=== PATIENT | female | born 1985 | race Caucasian/White ===

== ENCOUNTER 2021-07-30 11:34 | Emergency (ER) | payer BC, OTHER ==
[2021-07-30 12:01] LABS: Bilirubin Neg (Negative); Blood, Urine 250 (Negative); Clarity Slightly Cloudy (Clear); Glucose, Urine (Dipstick) Normal (Negative); Ketone, Urine Negative (Negative); Leukocyte Negative (Negative); Nitrite Negative (Negative); Protein, Urine (Dipstick) 15 mg/dl (Neg-Trace); Urobilinogen Normal mg/dL (Less than 2)
[2021-07-30 12:22] LABS: Bacteria/HPF 1+ HPF (None Seen); RBC/HPF 21-50 HPF (0-3); Squamous Epithelial 0-3 HPF (0-3); WBC/HPF 0-3 HPF (0-3)
[2021-07-30 12:25] LABS: #Monocytes 0.4 10x3/uL (0.0-1.1); #Neutrophils 4.6 10x3/uL (1.5-8.4); %Basophils 0.3 % (0.0-2.0); %Eosinophils 0.3 % (0.0-6.0); %Lymphocytes 27.6 % (18.0-47.0); %Monocytes 5.2 % (0.0-10.0); %Neutrophils 66.5 % (40.0-75.0); Hemoglobin 12.3 g/dL (12.0-15.5); Mean Corpuscular HGB CONC 34.4 g/dL (32.0-36.0); Mean Corpuscular Hemoglobin 29.4 pg (27.0-33.0); Mean Corpuscular Volume 85.4 fl (81.6-98.3); Mean Platelet Volume 9.4 fl (7.4-10.4); Platelet Count 211 10x3/uL (150-450); Red Blood Cell (RBC) Count 4.19 10x6/uL (3.90-5.03)
[2021-07-30 12:53] LABS: ALT (SGPT) 23 U/L (8-55); AST (SGOT) 30 U/L (5-34); Albumin 3.7 g/dL (3.5-5.0); Alkaline Phosphatase 50 U/L (40-110); Anion Gap 14 mmol/L (10-20); BUN (Urea Nitrogen) 13 mg/dL (7.0-18.7); Bilirubin, Total 0.3 mg/dL (0.2-1.2); Calc. Creatinine Clearance 0 mL/min (70-130); Calcium 9.1 mg/dL (7.8-10.44); Carbon Dioxide 20 mmol/L (22-29); Chloride 107 mmol/L (98-107); Glucose 69 mg/dL (70-105); Potassium 3.6 mmol/L (3.5-5.1); Protein, Total 6.7 g/dL (6.0-8.3); Sodium 137 mmol/L (136-145)
== END 2021-07-30 14:22 | disposition home or self-care (01) ==
LOC: CSHERS 11:34
DX: O20.0 Threatened abortion (principal); Z3A.15 15 weeks gestation of pregnancy
CPT/HCPCS: 76815; 80053; 81003; 81015; 84702; 85025; 86900; 86901

== ENCOUNTER 2022-01-13 07:30 | Inpatient (IN) | payer BC, OTHER ==
[2022-01-16 06:24] VITALS: BMI 33.4
[2022-01-16] MEDS ORDERED: Lactated Ringer's 1,000 ML IV SCH (06:26)
[2022-01-16] MEDS ORDERED: CEFAZOLIN 2 GM in Sodium Chloride 0.9% 100 ML IVPB SCH (06:26)
[2022-01-16] MEDS ORDERED: Bicitra 30 ML UDCUP PO PRN (06:26)
[2022-01-16] MEDS ORDERED: hydrALAZINE 20 MG/ML VIAL SLOW IVP PRN ×2 (06:26→16:54)
[2022-01-16] MEDS ORDERED: Famotidine/PF 20 mg/2ml Vial SLOW IVP PRN (06:26)
[2022-01-16] MEDS ORDERED: Promethazine HCl 25 MG/ML VIAL IM PRN ×3 (06:26→16:54)
[2022-01-16] MEDS ORDERED: Ondansetron PF 4 MG/2 ML Vial IVP PRN ×3 (06:26→16:54)
[2022-01-16] MEDS ORDERED: Oxytocin 10 UNITS/ML VIAL ONE ×4 (07:02→09:11)
[2022-01-16] MEDS ORDERED: ePHEDrine Sulfate 50 MG/10 ML VIAL ONE (07:02)
[2022-01-16] MEDS ORDERED: Morphine PF 10 MG/10 ML VIAL ONE (07:02)
[2022-01-16] MEDS ORDERED: PHENYLEPHRINE-NS 100 MCG/ML 10 ML SYRINGE ONE (07:02)
[2022-01-16] MEDS ORDERED: Fentanyl 100 MCG/2 ML VIAL ONE (07:02)
[2022-01-16] MEDS ORDERED: Phenylephrine 40 MG/NS 250 ML 250 ML ONE (07:03)
[2022-01-16] MEDS ORDERED: Ondansetron PF 4 MG/2 ML Vial ONE (07:58)
[2022-01-16] MEDS ORDERED: Ketorolac Tromethamine 30 MG/ML VIAL ONE (08:04)
[2022-01-16] MEDS ORDERED: Misoprostol 200 MCG TAB ONE (08:13)
[2022-01-16] MEDS ORDERED: Methylergonovine 0.2 MG/ML VIAL ONE (08:13)
[2022-01-16 09:35] LABS: Hemoglobin 9.8 g/dL (12.0-15.5); Mean Corpuscular HGB CONC 33.8 g/dL (32.0-36.0); Mean Corpuscular Hemoglobin 30.7 pg (27.0-33.0); Mean Corpuscular Volume 90.9 fl (81.6-98.3); Platelet Count 204 10x3/uL (150-450); RBC Distribution Width 14.4 % (11.5-14.5); Red Blood Cell (RBC) Count 3.19 10x6/uL (3.90-5.03); White Blood Cell (WBC) Count 15.6 10x3/uL (3.5-10.5)
[2022-01-16] MEDS ORDERED: Ketorolac Tromethamine 30 MG/ML VIAL IVP PRN (09:40)
[2022-01-16] MEDS ORDERED: diphenhydrAMINE 50 MG/ML VIAL IVP PRN (09:40)
[2022-01-16] MEDS ORDERED: Naloxone HCl 0.4 mg/ml Vial IVP PRN ×2 (09:40)
[2022-01-16] MEDS ORDERED: Fentanyl 100 MCG/2 ML VIAL SLOW IVP PRN (09:40)
[2022-01-16] MEDS ORDERED: Ondansetron HCl/PF 4 MG/2 ML Vial IVP PRN (09:40)
[2022-01-16] MEDS ORDERED: HYDROmorphone 2 MG/ML VIAL SLOW IVP PRN (09:40)
[2022-01-16] MEDS ORDERED: Moisturizing Cream (Eucerin) 113 GM JAR TOP PRN (09:40)
[2022-01-16] MEDS ORDERED: Promethazine HCl 25 MG SUPP PR PRN (09:40)
[2022-01-16] MEDS ORDERED: Naloxone HCl 0.4 mg/ml Vial IV PRN (09:40)
[2022-01-16] MEDS ORDERED: Meperidine HCl/PF 25 MG/ML VIAL SLOW IVP PRN (09:40)
[2022-01-16] MEDS: Tranexamic Acid 1,000 MG/10 ML VIAL ONE ×2 (09:42→10:53)
[2022-01-16] MEDS ORDERED: Communication Order-Pharmacy FS SCH (09:45)
[2022-01-16 09:52] LABS: Fibrinogen 417 mg/dL (220-504); INR-International Normal Ratio 0.9; PTT 27.1 sec (22.0-33.0); Prothrombin Time 9.8 sec (9.5-12.1)
[2022-01-16 10:08] LABS: D-Dimer Test Greater than 35.20 mg/L FEU (0.19-0.50)
[2022-01-16] MEDS ORDERED: Tranexamic Acid 1,000 MG/10 ML VIAL ONE (10:46)
[2022-01-16] MEDS ORDERED: Acetaminophen 500 MG TAB PO SCH (11:00)
[2022-01-16] MEDS ORDERED: Meperidine HCl/PF 25 MG/ML VIAL ONE (12:53)
[2022-01-16] MEDS: Morphine 4 MG/ML VIAL SLOW IVP PRN ×2 (15:53→19:20)
[2022-01-16 16:25] LABS: Hemoglobin 9.5 g/dL (12.0-15.5); Mean Corpuscular HGB CONC 35.4 g/dL (32.0-36.0); Mean Corpuscular Hemoglobin 30.4 pg (27.0-33.0); Mean Corpuscular Volume 85.9 fl (81.6-98.3); Mean Platelet Volume 10.2 fl (7.4-10.4); Platelet Count 142 10x3/uL (150-450); RBC Distribution Width 16.8 % (11.5-14.5); Red Blood Cell (RBC) Count 3.12 10x6/uL (3.90-5.03); White Blood Cell (WBC) Count 12.9 10x3/uL (3.5-10.5)
[2022-01-16] MEDS ORDERED: Bisacodyl 10 MG SUPP PR PRN (16:54)
[2022-01-16] MEDS ORDERED: diphenhydrAMINE 25 MG CAP PO PRN (16:54)
[2022-01-16] MEDS ORDERED: Boostrix 0.5 ML (Tdap) VIAL (>/=7 yrs of age) IM ONE (16:54)
[2022-01-16] MEDS ORDERED: Simethicone Chewable 80 MG TAB PO PRN (16:54)
[2022-01-16] MEDS: Lactated Ringer's 1,000 ML IV SCH ×2 (18:14→22:35)
[2022-01-16] MEDS: Docusate 100 MG CAP PO SCH (20:49)
[2022-01-16] MEDS: Ferrous Sulfate 325 MG TAB PO SCH (20:49)
[2022-01-16] MEDS: HYDROcodone/Acetaminophen 5/325 mg Tablet PO PRN (23:46)
[2022-01-17] MEDS: HYDROcodone/Acetaminophen 5/325 mg Tablet PO PRN ×2 (04:24→08:39)
[2022-01-17 05:33] LABS: Hemoglobin 8.7 g/dL (12.0-15.5); Mean Corpuscular HGB CONC 35.7 g/dL (32.0-36.0); Mean Corpuscular Hemoglobin 30.6 pg (27.0-33.0); Mean Corpuscular Volume 85.9 fl (81.6-98.3); Mean Platelet Volume 9.9 fl (7.4-10.4); Platelet Count 143 10x3/uL (150-450); RBC Distribution Width 17.2 % (11.5-14.5); Red Blood Cell (RBC) Count 2.84 10x6/uL (3.90-5.03); White Blood Cell (WBC) Count 13.1 10x3/uL (3.5-10.5)
[2022-01-17] MEDS: Docusate 100 MG CAP PO SCH ×2 (08:39→21:03)
[2022-01-17] MEDS: Ferrous Sulfate 325 MG TAB PO SCH ×2 (08:39→21:04)
[2022-01-17] MEDS: Prenatal Vitamin 1 TAB PO SCH (08:39)
[2022-01-17] MEDS: Lactated Ringer's 1,000 ML IV SCH ×2 (13:28→15:39)
[2022-01-17] MEDS: Ibuprofen 800 MG TAB PO SCH ×2 (13:30→21:04)
[2022-01-18] MEDS: Lactated Ringer's 1,000 ML IV SCH ×2 (02:07→09:07)
[2022-01-18] MEDS: Ibuprofen 800 MG TAB PO SCH ×2 (06:17→14:43)
[2022-01-18] MEDS: Prenatal Vitamin 1 TAB PO SCH (09:08)
[2022-01-18] MEDS: Ferrous Sulfate 325 MG TAB PO SCH (09:08)
[2022-01-18] MEDS: Docusate 100 MG CAP PO SCH (09:08)
[2022-01-18] MEDS: HYDROcodone/Acetaminophen 5/325 mg Tablet PO PRN (09:10)
[2022-01-18 09:42] VITALS: BP 87/51; TEMP 98.8
== END 2022-01-18 15:40 | disposition home or self-care (01) | DRG 787 ==
LOC: CSHLD 01-16 05:47 → CSHPP 01-16 17:15
PROVIDERS: ADMIT Obstetrics & Gynecology; ATTEND Obstetrics & Gynecology
PROC: 10D00Z1 Extraction of Products of Conception, Low, Open Approach (ICD-10-PCS; principal; 2022-01-16)
PROC: 0WQF0ZZ Repair Abdominal Wall, Open Approach (ICD-10-PCS; 2022-01-16)
PROC: 30233N1 Transfusion of Nonautologous Red Blood Cells into Peripheral Vein, Percutaneous Approach (ICD-10-PCS; 2022-01-16)
DX: O34.211 Maternal care for low transverse scar from previous cesarean delivery (principal); O72.1 Other immediate postpartum hemorrhage; Z3A.39 39 weeks gestation of pregnancy; Z37.0 Single live birth; O99.02 Anemia complicating childbirth; D64.9 Anemia, unspecified; O71.89 Other specified obstetric trauma; O36.63X0 Maternal care for excessive fetal growth, third trimester, not applicable or unspecified; O43.213 Placenta accreta, third trimester; O90.0 Disruption of cesarean delivery wound; O69.81X0 Labor and delivery complicated by cord around neck, without compression, not applicable or unspecified; Z20.822 Contact with and (suspected) exposure to COVID-19
CPT/HCPCS: 36415; 36430; 51702; 85025; 85027; 85049; 85300; 85362; 85379; 85384; 85610; 85730; 86780; 86850; 86900; 86901; 87340; 88307; J0690; J1200; J1885; J2175; J2210; J2270; J2274; J2405; J2590; J3010; J3490; P9016; S0028; U0002